=== PATIENT | male | born 1945 | race Caucasian/White ===

== ENCOUNTER 2019-12-19 10:08 | Emergency (ER) | payer MEDICARE, SELFPAY ==
[2019-12-19 10:11] VITALS: BP 156/91; PULSE 90; RESP 20; TEMP 36.6; O2SAT 97
--- NOTE | 2019-12-19 10:40 | ED.GENADULT ---
HPI - General Adult General Chief complaint: Upper Respiratory Infection Stated complaint: sore throat/cough Time Seen by Provider: 12/19/19 10:40 Source: patient Mode of arrival: ambulatory Limitations: no limitations History of Present Illness HPI narrative: 74-year-old male patient presents to the [facility] with complaints of sore throat and cough in the past 3 days. Denies any fevers or ear pain. Patient states he has had a lot of runny nose, stuffy nose change in the back the throat and slight cough. Denies any chest pain or shortness of breath. Denies any abdominal pain, nausea, vomiting or diarrhea. Patient states he is tried 1 dose of Mucinex and 1 spray of Flonase for his symptoms so far. Denies getting a flu shot this year. Related Data Home Medications Medication Instructions Recorded Confirmed meloxicam 12/19/19 tramadol mg 12/19/19 Allergies Allergy/AdvReac Type Severity Reaction Status Date / Time No Known Allergies Allergy Verified 11/27/19 15:10 Review of Systems Review of Systems: Narrative: CONSTITUTIONAL: Denies fever, chills, or sweats. EYES: Denies visual changes, redness, or discharge. ENT: Positive rhinorrhea, congestion, sore throat, denies otalgia. CARDIOVASCULAR: Denies chest pain, palpitations, or edema. RESPIRATORY: Positive nonproductive cough, denies dyspnea. GASTROINTESTINAL: Denies abdominal pain, nausea, vomiting, or diarrhea. GENITOURINARY: Denies dysuria or hematuria. SKIN: Denies rash or itching. MUSCULOSKELETAL: Denies back pain, joint pain, or myalgia. NEUROLOGIC: Denies headache, numbness, or weakness. PSYCHIATRIC: Denies anxiety or depression. [facility] Family History Family History Mother Patient's mother is Father Patient's father is Social History Social History Smoking status: Never smoker Second hand tobacco smoke exposure: No Alcohol intake: never Comments At the time of my signature I agree with nursing past medical history, surgical, social, and family history. There is no relevant family history pertinent to the presenting complaint. Exam Narrative: Exam Narrative: GENERAL: Well-appearing, well-nourished, and in no acute distress. HEAD: Normocephalic, atraumatic. Slight tenderness noted to maxillary sinuses on palpation EYES: PERRLA and EOMI. ENT: Nares with erythema and edema noted bilaterally, no rhinorrhea or epistaxis. Mucous membranes moist. Posterior pharynx with some postnasal drip but no tonsil enlargement no exudates or lesions present. Bilateral TMs are clear no erythema or foreign bodies in the canal. NECK: Supple. No lymphadenopathy CHEST: Clear to auscultation. No respiratory distress. HEART: Regular rate and rhythm. No murmur heard. Normal peripheral pulses. ABDOMEN: Soft, nontender, nondistended, normal active bowel sounds. EXTREMITIES: Normal range of motion. No edema. SKIN: Warm, dry, no rash. NEURO: No focal deficits. Alert and oriented x3. Course Vital Signs Vital signs: Vital Signs Temperature 36.6 C 12/19/19 10:11 Pulse Rate 90 12/19/19 10:11 Respiratory Rate 20 12/19/19 10:11 Blood Pressure 156/91 H 12/19/19 10:11 Pulse Oximetry 97 12/19/19 10:11 Temperature 36.6 C 12/19/19 10:11 Pulse Rate 90 12/19/19 10:11 Respiratory Rate 20 12/19/19 10:11 Blood Pressure 156/91 H 12/19/19 10:11 Pulse Oximetry 97 12/19/19 10:11 Vital signs reviewed. The patient has been informed that they may have pre-hypertension or Hypertension based on a BP reading in the department. I recommend that the patient call the primary care provider listed on their discharge instructions or a physician of their choice this week to arrange follow up for further evaluation of possible pre-hypertension or Hypertension Medical Decision Making Differential Diagnosis Diff
== END 2019-12-19 10:59 | disposition home or self-care (01) ==
PROVIDERS: Emergency Provider Nurse Practitioner Family; PCP Physician Assistant
DX: J30.2 Other seasonal allergic rhinitis (principal); J01.90 Acute sinusitis, unspecified
CPT/HCPCS: 99213; G0463

== ENCOUNTER → 2021-08-16 09:07 | Outpatient (CLI) | payer MEDICARE, SELFPAY ==
[2021-08-16 17:30] LABS: SARS-CoV-2 RNA PCR Negative
== END ==
PROVIDERS: PCP Internal Medicine; Visit Provider Physician Assistant
DX: Z20.822 Contact with and (suspected) exposure to COVID-19 (principal)
CPT/HCPCS: C9803; U0003; U0005

== ENCOUNTER 2021-10-09 10:11 | Emergency (ER) | payer MEDICARE, SELFPAY ==
--- NOTE | ~2021-10-09 | XR_ITS ---
EXAMINATION: XR cervical spine 4-5V DATE: 10/09/2021 11:24 INDICATION: Neck pain. Shoulder pain. TECHNIQUE: 5 views of cervical spine were obtained. COMPARISON: Cervical spine radiographs 03/27/2017 FINDINGS: There is 2 mm retrolisthesis of C4 on C5 and C6 on C7 and C7 on T1. There is 5 degrees levo curvature of cervical spine. Vertebral body heights are normal. There is mildly decreased disc height at C4-C5 and moderately decreased disc height at C5-C6 and C6-C7. 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 There is multilevel severe facet j oint osteoarthritis. There is mild central canal stenosis at C4-C5, C5-C6, C6-C7, and C7-T1. No preve rtebral soft tissue swelling. IMPRESSION: 1. Severe cervical spondylosis. Reviewed, dictated and finalized at location [facility]
[2021-10-09 10:55] VITALS: BP 172/92; PULSE 70; RESP 18; TEMP 37; O2SAT 100
--- NOTE | 2021-10-09 11:05 | ED.UPPEXIN ---
HPI - Extremity Injury (Upper) General Chief Complaint: Extremity Problem,Nontraumatic Stated Complaint: Neck Pain,Rt Shoulder Pain Time Seen by Provider: 10/09/21 11:05 Source: patient, RN notes reviewed and old records reviewed Mode of arrival: ambulatory Limitations: no limitations History of Present Illness HPI narrative: 76-year-old male presents to the [facility] with complaints of right shoulder pain, right lateral neck pain. Patient reports that he was lifting boxes cans on Saturday, 5 days ago. Has taken tramadol and meloxicam a couple of days ago. Denies any loss or retention of bowel or bladder. Denies any numbness or tingling in extremities. Full range of motion of bilateral shoulders with sensation intact in all 5 fingers. Full range of motion of the shoulders, elbow and wrist. Related Data Home Medications Medication Instructions Recorded Confirmed meloxicam 7.5 mg PO PRN PRN 10/09/21 10/09/21 Allergies Allergy/AdvReac Type Severity Reaction Status Date / Time No Known Allergies Allergy Verified 10/09/21 10:45 Review of Systems Review of Systems: All systems reviewed & are unremarkable except as noted in HPI and below Constitutional: Constitutional: Reports no additional constitutional complaints Eyes: Eyes: Reports no additional eye complaints ENT: Reports system reviewed and no additional complaints, except as documented Cardiovascular: Cardiovascular: Reports no additional cardiovascular complaints and Denies chest pain Respiratory: Respiratory: Reports no additional respiratory complaints Musculoskeletal: Musculoskeletal: Reports as per HPI and Reports back pain Integumentary/Breasts: Skin/Breast: Reports system reviewed and no additional complaints, except as docu, Denies erythema and Denies rash Neurologic: Reports system reviewed and no additional complaints, except as documented, Denies confusion, Denies vertigo, Denies dizziness, Denies syncope, Denies headache(s), Denies focal weakness, Denies numbness and Denies weakness Psychiatric: Psychiatric: Reports no additional psychiatric complaints Allergic/Immunologic: Allergic/Immunologic: Reports no additional allergic/immunologic complaints [facility] Surgical History Surgical History H/O hernia repair History of hip surgery Family History Family History Mother Patient's mother is Father Patient's father is Social History Social History Smoking status: Never smoker Second hand tobacco smoke exposure: No Alcohol intake: never Substance use: never Comments At the time of my signature, I reviewed and agree with the nursing past medical, surgical, social, and family history. There is no relevant family history pertinent to the patient complaint. Exam Const: General: healthy appearing, no acute distress and alert Nutritional Appearance: well nourished Orientation/consciousness: patient oriented x3 Limitations: no limitations HENMT: Head: normal to inspection Ears: external ears normal Eyes: Pupils: Equal, round and reactive pupils present Neck: Neck: normal visual inspection, no lymphadenopathy and no meningeal signs Chest: Chest palpation & inspection: normal inspection of the chest Resp: Effort & Inspection: normal respiratory effort and no use of accessory muscles Auscultation: clear to auscultation bilaterally, no crackles, no rales, no rhonchi and no wheezes Cardio: Rate: regular rate Rhythm: regular rhythm Back/Spine/Pelvis: Back: no CVA tenderness Cervical Spine: cervical ROM normal, Cervical spine tenderness and No step off deformity Thoracic/Lumbar Spine: thoracic and lumbar spine normal to inspection Back/spine/pelvis image: 1. Generalized tenderness noted. Skin: General skin exam: normal color Rashes: no gissel
== END 2021-10-09 11:50 | disposition home or self-care (01) ==
PROVIDERS: Emergency Provider Nurse Practitioner; PCP Internal Medicine
DX: M47.812 Spondylosis without myelopathy or radiculopathy, cervical region (principal)
CPT/HCPCS: 72050; 99213; G0463

== ENCOUNTER → 2021-11-09 07:23 | Outpatient (CLI) | payer MEDICARE, SELFPAY ==
[2021-11-09 18:23] LABS: SARS-CoV-2 RNA PCR Positive
== END ==
PROVIDERS: PCP Internal Medicine; Visit Provider Internal Medicine
DX: U07.1 COVID-19 (principal)
CPT/HCPCS: C9803; U0003; U0005

== ENCOUNTER 2022-07-20 08:21 | Outpatient (CLI) | payer MEDICARE, SELFPAY ==
[2022-07-20 09:03] LABS: Hematocrit 40.5 % (42.0-52.0); Hemoglobin 13.2 g/dL (14.0-18.0); Mean Corpuscular HGB Conc 32.6 g/dl (32-36); Mean Corpuscular Volume 101.3 fl (80-100); Mean Platelet Volume 9.6 fl (7.4-10.4); Platelet Count Result 269 k/mm3 (150-375); Red Cell Distribution Width 14.8 % (11.5-14.5); White Blood Count 6.6 K/mm3 (4.5-10.0)
[2022-07-20 09:28] LABS: Alanine Aminotransferase 22 U/L (6-50); Albumin Level 4.5 g/dL (3.5-5.1); Alkaline Phosphatase 52 U/L (38-126); Anion Gap 8 mmol/L (8-16); Aspartate Amino Transferase 31 U/L (17-59); Bilirubin,Total 1.1 mg/dL (0.2-1.3); Blood Urea Nitrogen 18 mg/dL (9-20); Calcium 9.4 mg/dL (8.4-10.2); Carbon Dioxide 26 mmol/L (22-30); Chloride 104 mmol/L (98-107); Cholesterol 177 mg/dL (0-200); Estimated Glomerular Filt Rate > 60; Glucose 111 mg/dL (65-110); HDL Direct 64 mg/dL; Potassium 3.9 mmol/L (3.4-5.0); Sodium 138 mmol/L (137-145); Triglycerides 56 mg/dL (<150)
[2022-07-20 09:38] LABS: LDL Cholesterol Direct 77 mg/dL
[2022-07-20 10:02] LABS: Prostate Specific Antigen 2.7 ng/mL (< OR = 4.0)
[2022-07-20 10:38] LABS: Folic Acid 11.5 ng/mL (2.76->20)
== END 2022-07-20 08:22 | disposition home or self-care (01) ==
PROVIDERS: PCP Internal Medicine; Visit Provider Physician Assistant
DX: R53.83 Other fatigue (principal); Z12.5 Encounter for screening for malignant neoplasm of prostate; I10 Essential (primary) hypertension
CPT/HCPCS: 36415; 80053; 80061; 82607; 82746; 84153; 84443; 85027; G0103

== ENCOUNTER 2022-11-29 09:27 | Outpatient (CLI) | payer MEDICARE, SELFPAY ==
--- NOTE | 2022-11-29 11:00 | NEURO_ITS ---
Impression: # Patient reports a history of pain in right hand. # Evidence of mild right Carpal Tunnel Syndrome. # Normal needle/EMG exam. # Clinical correlation recommended. Motor Nerve Conduction Upper Extremities Median Nerve Conduction Velocity (m/sec) Terminal Latency (msec) Response Voltage(mV) Elbow-Wrist Wrist Elbow Wrist Right 55 4.2 3 3 Left Ulnar Nerve Conduction Velocity (m/sec) Terminal Latency (msec) Response Voltage(mV) Above Elbow Below Elbow Wrist Above Elbow Below Elbow Wrist Right 51 53 2.3 4 5 6 Left F-Wave Latency Median (ms) Ulnar (ms) Right 29.8 29.1 Left Sensory Nerve Conduction Upper Extremities Median Nerve Stimulation Terminal Latency (msec) Wrist/Digit Response Voltage (uV) Wrist Right 4.0/4.3 20/17 Left Ulnar Nerve Stimulation Terminal Latency (msec) Wrist/Digit Response Voltage (uV) Wrist Right 3.0 15 Left Radial Nerve Terminal Latency (msec) Response Voltage(mV) Right 3.5 9 Left Left Right Muscles Examined Fibrillation Fasciculation Scarcity Voltage Duration Left Right Left Right Left Right Left Right Left Right Deltoid Biceps X Brachioradialis Triceps X Pronator Teres X Ext Indicis X Ext Digitorum X Abd Poll Brev X 1st Dorsal Interosseus Paraspinals MTDD
== END 2022-11-29 09:28 | disposition home or self-care (01) ==
LOC: ANHNEURO 09:30
PROVIDERS: PCP Internal Medicine; Visit Provider Physician Assistant
DX: M25.531 Pain in right wrist (principal); G56.01 Carpal tunnel syndrome, right upper limb
CPT/HCPCS: 95886; 95909

== ENCOUNTER 2023-03-15 01:27 | Day surgery (SDC) | payer MEDICARE, SELFPAY ==
[2023-03-04 12:56] VITALS: BMI 23.8
--- NOTE | 2023-03-14 20:35 | PM.HPGS ---
History of Present Illness History of Present Illness Consent: Risks, benefits, and alternatives have been discussed and questions answered. Patient agrees to proceed with procedure. Chief complaint: neoplasm screening Narrative: Torey Hernandez is a 77 year old male who is referred for colon cancer screening.He had tubulr adenoma removed in 2006. Review of Systems Review of Systems: All systems reviewed & are unremarkable except as noted in HPI and below PMFSH Surgical History Surgical History H/O hernia repair History of hip surgery Family History Family History Mother Patient's mother is Father Patient's father is Social History Social History Smoking status: Never smoker Second hand tobacco smoke exposure: No Alcohol intake: never Substance use: never Substance use type: does not use Lack of Transportation: No Lack of Food: Never True Current Housing: I Have Housing Concerned About Future Housing: No Difficulty Paying Gas/Electric Bills: No Difficulty Paying for Meds: No Currently Unemployed: No Education: High School Diploma/GED Difficulty w/ Childcare or Family Care: No Living arrangements: with family Spiritual care concerns: No Meds Home Medications and Allergies Home Medications Medication Instructions Recorded Confirmed Type No Home Medications 01/22/23 03/04/23 History Allergies Allergy/AdvReac Type Severity Reaction Status Date / Time No Known Allergies Allergy Verified 03/04/23 13:00 Exam Const: General: alert Orientation/consciousness: patient oriented x3 Resp: Auscultation: clear to auscultation bilaterally Cardio: Rhythm: regular rhythm GI: GI Palp: Yes Soft to palpation and No Tenderness to palpation present (GI) Neuro: General: patient oriented x3 Assessment and Plan Assessment and plan (1) Colon cancer screening: Code(s): Z12.11 - Encounter for screening for malignant neoplasm of colon Status: Acute Assessment and Plan: Colonoscopy with possible biopsy or polypectomy or cautery or injection of substances.
[2023-03-15 12:28] VITALS: BP 148/90; PULSE 70; RESP 18; TEMP 36.6; O2SAT 100; BMI 21.8
[2023-03-15] MEDS: LACTATED RINGERS 1,000 ML 150 ML IV CONT (12:38)
--- NOTE | 2023-03-15 14:10 | P.PNAN_ITS ---
Anes - Initial Pre Proc Eval Procedure: Operation Date: 03/15/23 13:30 Proposed Procedures p Screening Colonoscopy - Dilshad Nick MD Date/Time: 03/15/23 14:10 Surgeon: Dilshad Nick MD Pre Op Diagnosis: neoplasm screening Patient Data Age: 77 Gender: M Height: 1.65 m Weight: 59.5 kg Last Vital Signs Temp 97.9 F 03/15/23 12:28 Pulse 70 03/15/23 12:28 Resp 18 03/15/23 12:28 BP 148/90 H 03/15/23 12:28 Pulse Ox 100 03/15/23 12:28 O2 Del Method Room Air 03/15/23 12:28 Allergies Allergy/AdvReac Type Severity Reaction Status Date / Time No Known Allergies Allergy Verified 03/04/23 13:00 Home Medications Medication Instructions Recorded Confirmed Type No Home Medications 01/22/23 03/04/23 History Patient hx anesthesia problems: none Family hx anesthesia problems: none Results Review: All pre-operative results and documents have been reviewed as part of the pre- operative evaluation. [facility] Surgical History Surgical History H/O hernia repair History of hip surgery Family History Family History Mother Patient's mother is Father Patient's father is Social History Social History Smoking status: Never smoker Second hand tobacco smoke exposure: No Alcohol intake: never Substance use: never Substance use type: does not use Lack of Transportation: No Lack of Food: Never True Current Housing: I Have Housing Concerned About Future Housing: No Difficulty Paying Gas/Electric Bills: No Difficulty Paying for Meds: No Currently Unemployed: No Education: High School Diploma/GED Difficulty w/ Childcare or Family Care: No Living arrangements: with family Spiritual care concerns: No Anes - Eval Final PreProcedure Day of Procedure 03/15/23 14:10 Patient weight: normal Heart: regular rate and rhythm Lungs: clear to auscultation Airway: Mallampati scale class II Neurological: alert and oriented Last oral intake: >/= 8 hours ASA classification: II Emergent: no Anesthetic plan: proceed Anesthesia type and monitoring: general GIVS and standard monitoring Results Review: All pre-operative results and documents have been reviewed as part of the pre- operative evaluation. Informed Consent: The patient's anesthetic plan and its attendant risks and benefits were discussed with the patient/family/POA. Questions were solicited and answers p rovided to the satisfaction of the patient/family/POA.
[2023-03-15 14:37] VITALS: BP 124/74; PULSE 68; RESP 18; O2SAT 98
[2023-03-15 14:47] VITALS: BP 123/75; PULSE 61; RESP 18; O2SAT 98
[2023-03-15 14:57] VITALS: BP 124/76; PULSE 88; RESP 18; O2SAT 100
== END 2023-03-15 15:12 | disposition home or self-care (01) ==
PROVIDERS: PCP Internal Medicine; Visit Provider Internal Medicine Gastroenterology
PROC: 0DJD8ZZ Inspection of Lower Intestinal Tract, Via Natural or Artificial Opening Endoscopic (ICD-10-PCS; CPT 45378; principal; 2023-03-15 13:30)
DX: Z12.11 Encounter for screening for malignant neoplasm of colon (principal); Z86.010 Personal history of colon polyps
CPT/HCPCS: G0105; J2704; J7120

== ENCOUNTER 2024-02-19 07:38 | Outpatient (CLI) | payer MEDICARE, SELFPAY ==
[2024-02-19 08:30] LABS: Alanine Aminotransferase 24 U/L (6-50); Albumin Level 4.3 g/dL (3.5-5.1); Alkaline Phosphatase 50 U/L (38-126); Anion Gap 5 mmol/L (4-12); Aspartate Amino Transferase 33 U/L (17-59); Bilirubin,Total 1.4 mg/dL (0.2-1.3); Blood Urea Nitrogen 24 mg/dL (9-20); Calcium 9.6 mg/dL (8.4-10.2); Carbon Dioxide 28 mmol/L (22-30); Chloride 106 mmol/L (98-107); Cholesterol 167 mg/dL (0-200); Estimated Glomerular Filt Rate > 60; Glucose 101 mg/dL (65-110); HDL Direct 62 mg/dL; Sodium 139 mmol/L (137-145); Triglycerides 48 mg/dL (<150)
[2024-02-19 08:41] LABS: LDL Cholesterol Direct 84 mg/dL
[2024-02-19 08:44] LABS: Basophils Absolute Auto 0.1 K/mm3 (0.0-0.1); Basophils Percent Auto 1.1 % (0.2-1.2); Eosinophils Absolute Auto 0.4 K/mm3 (0-0.3); Hematocrit 41.9 % (42.0-52.0); Hemoglobin 13.3 g/dL (14.0-18.0); Immature Granulocyte Absolute 0.02 K/mm3 (0.00-0.031); Immature Granulocyte Percent A 0.3 % (0-0.5); Lymphocytes Absolute Auto 1.52 K/mm3 (0.9-3.2); Lymphocytes Percent Auto 21.5 % (18.3-44.2); Mean Corpuscular HGB Conc 31.7 g/dl (32-36); Mean Corpuscular Hemoglobin 33.3 pg (26-34); Mean Platelet Volume 9.7 fl (7.4-10.4); Monocytes Absolute Auto 0.8 K/mm3 (0.1-0.6); Neutrophils Absolute Auto 4.3 K/mm3 (1.3-6.7); Neutrophils Percent Auto 61.1 % (45.5-73.1); Platelet Count Result 266 k/mm3 (150-375); Red Blood Count 3.99 M/mm3 (4.6-6.20); Red Cell Distribution Width 15.6 % (11.5-14.5); White Blood Count 7.1 K/mm3 (4.5-10.0)
[2024-02-19 09:32] LABS: Folic Acid 14.1 ng/mL (2.76->20)
== END 2024-02-19 07:39 | disposition home or self-care (01) ==
PROVIDERS: PCP Internal Medicine; Visit Provider Physician Assistant
DX: R53.83 Other fatigue (principal); Z12.5 Encounter for screening for malignant neoplasm of prostate; E66.3 Overweight
CPT/HCPCS: 36415; 80053; 80061; 82607; 82746; 84153; 84443; 85025; G0103

== ENCOUNTER 2024-12-12 15:19 | Emergency (ER) | payer MEDICARE, SELFPAY ==
[2024-12-12 15:30] VITALS: BP 152/90; PULSE 80; RESP 14; TEMP 37.5; O2SAT 98
--- NOTE | 2024-12-12 15:41 | ED.EXTPRO ---
HPI - Extremity Problem General Chief complaint: Extremity Problem,Nontraumatic Stated complaint: Right Shoulder Pain Source: patient, RN notes reviewed and old records reviewed Mode of arrival: ambulatory Limitations: no limitations History of Present Illness HPI Narrative: Patient presents with complaints anterior right shoulder pain. Patient is right-hand dominant. Reports that he was doing a lot of pulling yesterday, awakened this with pain to the right shoulder that limits his range of motion. He denies any injury or trauma. He has not taken any medication for his symptoms. He voices no other concerns or complaints at this time. He is not in any obvious distress Related Data Allergies Allergy/AdvReac Type Severity Reaction Status Date / Time No Known Allergies Allergy Verified 12/12/24 15:22 Review of Systems Review of Systems: All systems reviewed & are unremarkable except as noted in HPI and below Constitutional: Constitutional: Reports no additional constitutional complaints ENT: Reports system reviewed and no additional complaints, except as documented Cardiovascular: Cardiovascular: Reports no additional cardiovascular complaints Respiratory: Respiratory: Reports no additional respiratory complaints Gastrointestinal: Gastrointestinal: Reports no additional gastrointestinal complaints Musculoskeletal: Musculoskeletal: Reports as per HPI, Reports arthralgias and Reports limited range of motion [facility] Surgical History Surgical History H/O hernia repair History of hip surgery Family History Family History Mother Patient's mother is Father Patient's father is Social History Social History Smoking status: Never smoker Second hand tobacco smoke exposure: No Alcohol intake: never Substance use: never Substance use type: does not use Lack of Transportation: No Lack of Food: Never True Current Housing: I Have Housing Concerned About Future Housing: No Difficulty Paying Gas/Electric Bills: No Difficulty Paying for Meds: No Currently Unemployed: No Education: High School Diploma/GED Difficulty w/ Childcare or Family Care: No Living arrangements: with family Spiritual care concerns: No Comments At the time of my signature, I reviewed and agree with the nursing past medical, surgical, social, and family history. There is no relevant family history pertinent to the patient complaint. Exam Const: General: cooperative, no acute distress, alert and awake Orientation/consciousness: oriented to person, oriented to place and oriented to time HENMT: Head: normal to inspection Resp: Effort & Inspection: normal respiratory effort and able to speak in complete sentences Auscultation: clear to auscultation bilaterally, no crackles, no rales, no rhonchi and no wheezes Cardio: Palpation: normal PMI Rate: regular rate Rhythm: regular rhythm Heart sounds: S1 normal heart sound present and S2 normal heart sound present Neuro: General: oriented to person, oriented to place and oriented to time Cranial nerves: Yes CN's II-XII intact bilaterally Extrem: Right upper extremity: shoulder/upper arm tenderness of the A-C joint and abnormal ROM pain with passive ROM with ABduction Psych: Appearance: grossly normal Thought process: Normal thought process present Insight: Good insight present (Psych) Judgement: Good judgement present (Psych) Course Course Level of Care: Express Care Visit Vital Signs Vital signs: Vital Signs Temperature 99.5 F 12/12/24 15:30 Pulse Rate 80 12/12/24 15:30 Respiratory Rate 14 12/12/24 15:30 Blood Pressure 152/90 H 12/12/24 15:30 Pulse Oximetry 98 12/12/24 15:30 Oxygen Delivery Room Air 12/12/24 15:30 Temperature 99.5 F 12/12/24 15:30 Pulse Rate 80 12/12/24 15:30 Respiratory Rate 14 12/12/24 15:30 Blood Pressure 152/90 H 12/12/24 15:30 Pulse Oximetry 98 12/12/24 15:30 Oxygen Delivery Room Air 12/12/24 15:30 Reviewed MDM - Extremity (Nontraumatic) MDM Narrative Medical decision making narrative: Patient with nontraumatic shoulder pain, likely due to overuse. Start prednisone burst, muscle relaxants. He is advised to follow-up with primary care provider, emergency department for new or worse symptoms. Discharge instructions reviewed with patient, as well as provided in writing per nursing staff. The instructions also include specific and strict return/GO TO THE ER as well as f/u information. All questions have been answered, and the patient deny any further questions with discharge and discharge plan. Some parts of this dictation were generated by voice recognition software and may contain typographical and/or grammatical inaccuracies. Differential Diagnosis Differential diagnosis: Likely other (Musculoskeletal pain, clavicle fracture, shoulder separation) Discharge Plan Discharge Clinical Impression: Pinched nerve in shoulder Qualifiers: Laterality: right Qualified Code(s): G56.81 - Other specified mononeuropathies of right upper limb Patient Disposition: Home, Self-Care Condition: Stable Instructions: Antibiotic Form, Shoulder Pain (ED) Patient Language: Telugu Prescriptions: New prednisone 50 mg tablet 50 mg PO DAILY Qty: 5 0RF cyclobenzaprine 5 mg tablet 5 mg PO TID PRN (Reason: muscle spasm) Qty: 14 0RF Follow-up/Referrals: Vinnie Blount DO [Primary Care Provider] - 1 Week Time of Disposition: 15:45
== END 2024-12-12 15:50 | disposition home or self-care (01) ==
PROVIDERS: Emergency Provider Nurse Practitioner Family; PCP Internal Medicine
DX: S44.91XA Injury of unspecified nerve at shoulder and upper arm level, right arm, initial encounter (principal); X58.XXXA Exposure to other specified factors, initial encounter
CPT/HCPCS: 99213; G0463